=== PATIENT | male | born 1945 | race Caucasian/White ===

== ENCOUNTER 2020-05-22 12:50 | Observation (INO) | payer MEDICARE, OTHER ==
[~2020-05-22] VITALS: Ht 177.8 cm; Wt 91.0 kg
--- NOTE | 2020-05-22 14:12 | NUR ---
PT HAS CO OF CHEST PAIN W ACTIVITY, STARTED YESTERDAY WHEN WALKING THE DOG. DENIES N/V OR DIAPHORESIS. 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 CASH GRAIN FARMER IN PLACE.
[2020-05-22 15:11] LABS: BASOPHILS % (AUTO) 1 % (0-1); EOSINOPHILS % (AUTO) 2 % (1-7); LYMPHOCYTES % (AUTO) 19 % (22-44); MEAN CORPUSCULAR HEMOGLOBIN 30.5 pg (27.5-34.5); MEAN CORPUSCULAR HGB CONC 34.3 g/dL (33.2-36.2); MEAN PLATELET VOLUME 8.4 fL (7.4-10.4); MONOCYTES % (AUTO) 7 % (2-9); NEUTROPHILS % (AUTO) 71 % (42-75); PLATELET COUNT 282 x10^3/uL (130-400); RED BLOOD COUNT 5.27 x10^6/uL (4.38-5.82); RED CELL DISTRIBUTION WIDTH 13.2 % (9.4-14.8)
[2020-05-22 15:17] LABS: ALBUMIN 4.1 g/dL (3.4-5.0); CREATININE 1.27 mg/dL (0.7-1.3)
--- NOTE | 2020-05-22 15:18 | NUR ---
PT RESTING, GIVEN SOME WATER. VSS. PENDING LAB/XR
[2020-05-22 15:22] LABS: TROPONIN I < 0.015 ng/mL (0.000-0.045)
[2020-05-22 15:35] LABS: CHLORIDE 105 mmol/L (98-107)
[2020-05-22 15:39] LABS: ANION GAP 4 mmol/L (5-15)
[2020-05-22 16:14] LABS: MD SCAN
[2020-05-22] MEDS ORDERED: SILD20TA2 PO (16:42)
[2020-05-22] MEDS ORDERED: ASPI81TA45 PO (16:42)
[2020-05-22] MEDS ORDERED: OLME-9 PEG (16:42)
[2020-05-22] MEDS ORDERED: METO25TA91 PO (16:42)
[2020-05-22] MEDS ORDERED: ASPI-650 PO (16:42)
--- NOTE | 2020-05-22 16:47 | NUR ---
PIV, PLAN FOR ADMIT. VSS
[2020-05-22] MEDS ORDERED: SODIUM CHLORIDE FLUSH 10ML SYR IVF PRN (17:30)
[2020-05-22] MEDS ORDERED: ACETAMINOPHEN 325 MG TABLET PO PRN (17:30)
[2020-05-22] MEDS ORDERED: DOCUSATE 100 MG CAPSULE PO PRN (17:30)
[2020-05-22] MEDS ORDERED: NITROGLYCERIN 0.4 MG BOTTLE (25 TABS) SL PRN (17:30)
[2020-05-22] MEDS ORDERED: LABETALOL 5MG/ML, 20ML IVPush PRN (17:30)
[2020-05-22] MEDS ORDERED: ENOXAPARIN 40 MG/0.4 ML SQ SCH (17:30)
[2020-05-22] MEDS ORDERED: ONDANSETRON ODT 4 MG PO PRN (17:30)
[2020-05-22] MEDS ORDERED: MELATONIN 5 MG TABLET PO PRN (17:30)
--- NOTE | 2020-05-22 18:10 | NUR ---
GIVEN PT MEAL TRAY
[2020-05-22 18:34] LABS: TROPONIN I < 0.015 ng/mL (0.000-0.045)
--- NOTE | 2020-05-22 18:45 | NUR ---
REPORT FROM KATINA VELÁSQUEZ. PT HAS NO NEEDS AT THIS TIME. WAITING FOR BED ASSIGNMENT. CALL [facility] IN [facility]
[2020-05-22] MEDS ORDERED: ACETAMINOPHEN 325 MG TABLET ONE (19:43)
[2020-05-22] MEDS ORDERED: ASPIRIN 325 MG TABLET EC ONE (19:46)
--- NOTE | 2020-05-22 19:53 | NUR ---
PT COMPLAINING OF BACK PAIN WHICH NORMAL FOR HIM. PT GIVEN TYLENOL AND 325 ASA. PT HAS NO OTHER NEEDS AT THIS TIME. CALL [facility] IN [facility]
--- NOTE | 2020-05-22 20:35 | NUR ---
CALLED AND ATTEMPTED TO GIVE REPORT. HELD FOR RN. RN UNAVAILIBLE AND WILL CALL BACK
[2020-05-22] MEDS ORDERED: ENOXAPARIN 40 MG/0.4 ML ONE (20:42)
[2020-05-22] MEDS ORDERED: ASPIRIN 325 MG TABLET EC PO SCH (21:00)
[2020-05-22] MEDS: SODIUM CHLORIDE FLUSH 10ML SYR IVF SCH (21:47)
[2020-05-22 22:01] VITALS: BP 135/73
[2020-05-23 00:35] LABS: TROPONIN I < 0.015 ng/mL (0.000-0.045)
[2020-05-23 01:30] VITALS: BP 126/71
[2020-05-23] MEDS ORDERED: METOPROLOL SUCCINATE 25 MG TAB.ER.24H PO SCH (06:00)
[2020-05-23 06:10] LABS: CHOL/HDL RATIO 3.3; LDL/HDL RATIO 1.7 (0.5-3.0)
[2020-05-23 06:30] VITALS: BP 145/78
[2020-05-23] MEDS ORDERED: LOSARTAN 50MG TABLET PO SCH (09:00)
[2020-05-23] MEDS ORDERED: ASPIRIN 81 MG TABLET EC PO SCH (09:00)
[2020-05-23 09:08] VITALS: BP 157/90
[2020-05-23] MEDS ORDERED: REGADENOSON 0.4 MG/5 ML SYRINGE ONE (09:08)
[2020-05-23] MEDS: SODIUM CHLORIDE FLUSH 10ML SYR IVF SCH (09:11)
[2020-05-23 12:09] VITALS: BP 125/75
[2020-06-16] MEDS ORDERED: HYDR-3237 PO (09:36)
[2020-06-16] MEDS ORDERED: POTA10TA5 PO (09:36)
[2020-06-16] MEDS ORDERED: TAMS-11 PO (09:36)
[2020-06-16] MEDS ORDERED: FURO-92 PO (09:36)
[2020-06-16] MEDS ORDERED: CLOP75TA PO (09:36)
[2020-06-16] MEDS ORDERED: METO25TA35 PO/NG (09:36)
[2020-06-16] MEDS ORDERED: ASPI81TA45 PO (09:36)
== END 2020-05-23 15:50 | disposition home or self-care (01) ==
LOC: ED 15:20 → EDIP 17:22 → INTOOBSV 17:22 → 5SO 21:06
PROVIDERS: ADMIT Internal Medicine; ATTEND Internal Medicine
DX: I25.118 Atherosclerotic heart disease of native coronary artery with other forms of angina pectoris (principal); I49.3 Ventricular premature depolarization; I10 Essential (primary) hypertension; E78.5 Hyperlipidemia, unspecified; I51.89 Other ill-defined heart diseases; Z79.82 Long term (current) use of aspirin; Z79.899 Other long term (current) drug therapy
CPT/HCPCS: 36415; 71045; 78452; 80048; 80061; 82040; 84484; 85025; 93005; 93017; 93306; 96372; 99285; A9502; C9898; G0378; J1650; J2785

== ENCOUNTER → 2020-07-01 | Outpatient (CLI) | payer MEDICARE, OTHER ==
[~2020-07-01] MED LIST: ASPI-650 PO; ASPI81TA45 PO; CLOP75TA PO; FURO-92 PO; HYDR-3237 PO; METO25TA35 PO/NG; METO25TA91 PO; OLME-9 PEG; POTA10TA5 PO; SILD20TA2 PO; TAMS-11 PO
== END | disposition home or self-care (01) ==
LOC: CFH 11:48
PROVIDERS: ATTEND Nurse Practitioner Family
DX: I10 Essential (primary) hypertension (principal); E78.2 Mixed hyperlipidemia
CPT/HCPCS: 71046